=== PATIENT | male | born 1945 | race Caucasian/White ===

== ENCOUNTER → 2018-02-23 15:23 | Outpatient (CLI) | payer MEDICARE, OTHER, SELFPAY ==
--- NOTE | 2018-02-23 15:26 | DI.MRI.S_ITS ---
PROCEDURE: MR LUMBAR SPINE WO CON INDICATIONS: Lumbar stenosis TECHNIQUE: Noncontrast sagittal T1 spin echo and T2 fast echo, sagittal STIR, axial T1 and T2 fast spin echo through the lumbar spine. In this patient, coronal T2-weighted images were also performed. COMPARISON: None. FINDINGS: Image quality: Excellent. Alignment and Curvature: Mild dextroconvex scoliotic curvature is seen. Minimal retrolisthesis is seen at the L2-L3 level. Bone Marrow: Marrow is of normal overall signal. No acute vertebral body compression fractures. Spinal Cord: Conus medullaris terminates at the L1 level. Visualized cord demonstrates normal signal and size. Paraspinous Soft Tissues: No paravertebral masses. T12-L1: No significant abnormality is seen. L1-L2: Moderate loss of disc height is seen. Loss of disc signal is seen. Moderate disc bulge is seen, which is eccentric to the left. Mild to moderate bilateral neural foraminal narrowing is seen. No significant central canal narrowing is seen. L2-L3: Moderate loss of disc height is seen. Loss of disc signal is seen. Moderate disc bulge is seen, which is eccentric to the left. Reactive marrow endplate changes are seen, which are hyperintense on T1-weighted and T2-weighted imaging and most consistent with fatty metaplasia (Modic type II changes). There is mild right-sided and moderate left-sided neural foraminal narrowing seen. Mild to moderate central canal narrowing is seen. L3-L4: Mild loss of disc height is seen. Loss of disc signal is seen. Mild to moderate disc bulge is seen. Mild facet joint hypertrophy is seen. Yizo-wl-kngwbxen bilateral neural foraminal narrowing is seen. No significant central canal narrowing is seen. L4-L5: At least moderate loss of disc height is seen. Loss of disc signal is seen. Moderate disc bulge is seen, which is eccentric to the right. Mild facet joint hypertrophy is seen. There is moderate right-sided and mild to moderate left-sided neural foraminal narrowing seen. Mild central canal narrowing is seen. L5-S1: Moderate loss of disc height is seen. Loss of disc signal is seen. Moderate disc bulge is seen, which is eccentric right. There is moderate to severe right-sided and moderate left-sided neural foraminal narrowing seen. There is a degree of impingement seen upon the exiting nerve roots. Mild central canal narrowing is seen. IMPRESSION: Dextroconvex scoliosis and multiple levels of lumbar spine degenerative changes are seen, which are overall most prominent at the L5-S1 level. Dictated by: Sami Busby M.D. on 02/23/2018 at 15:52 Approved by: Sami Busby M.D. on 02/23/2018 at 15:57
== END ==
PROVIDERS: Family Provider Internal Medicine; PCP Internal Medicine; Visit Provider Physical Medicine & Rehabilitation
DX: M47.27 Other spondylosis with radiculopathy, lumbosacral region (principal); M51.17 Intervertebral disc disorders with radiculopathy, lumbosacral region; M51.36 Other intervertebral disc degeneration, lumbar region; M41.86 Other forms of scoliosis, lumbar region
CPT/HCPCS: 72148

== ENCOUNTER 2018-03-28 13:34 | Outpatient (CLI) | payer MEDICARE, OTHER, SELFPAY ==
--- NOTE | 2018-03-28 13:36 | DI.RAD.S_ITS ---
PROCEDURE: PAIN L INTERLAMINAR/CAUDAL INJ INDICATIONS: 15885 L2/3 Translaminar Epidural Steroid Injection FINDINGS: Fluoroscopic spot filming was performed to verify placement of spinal needles at the L2-L3 level(s), as labeled on the films. Appropriate location(s) of the needle tip(s) was confirmed by injection of iodinated contrast. IMPRESSION: Fluoroscopy support for pain management. Dictated by: Elizabeth Garber M.D. on 03/28/2018 at 16:29 Approved by: Elizabeth Garber M.D. on 03/28/2018 at 16:29
[2018-03-28 14:05] VITALS: BP 145/94; PULSE 76; RESP 16; TEMP 36.7; O2SAT 96
[2018-03-28 14:33] VITALS: BP 176/99; PULSE 82; RESP 18; O2SAT 95
[2018-03-28 14:41] VITALS: BP 181/114; PULSE 82; RESP 18; O2SAT 95
[2018-03-28] MEDS: IOPAMIDOL 15 ML VIAL 3 ML INJ (14:42)
[2018-03-28] MEDS: BUPIVACAINE 0.25% (PF) VIAL 2 ML INJ (14:42)
[2018-03-28] MEDS: methylPREDNISolone acetate 80 MG/ML VIAL INJ (14:43)
[2018-03-28] MEDS: DEXAMETHASONE 10 MG/ML VIAL 20 MG INJ (14:43)
--- NOTE | 2018-03-28 14:54 | P.PCN_ITS ---
Procedures Date/Time Date of procedure: 03/28/18 Time of procedure: 14:52 General Procedure description: POST OP DIAGNOSIS 1. HNP WITH RADICULAR FEATURES, 2. MULTILEVEL CENTRAL STENOSIS, PROCEDURES 1. FLUORSCOPICALLY GUIDED CONTRAST CONTROLLED INTERLAMINAR EPIDURAL STEROID INJECTION - L2/3 PHYSICIAN: Caesar Schneider, DO INDICATIONS Familia is referred by for treatment of Bilateral Foraminal Stenosis L> R LE symptoms. FINDINGS Multilevel Central Spinal Stenosis with Nerve Root Compression DESCRIPTION OF PROCEDURE Fluoroscopically guided, contrast-controlled L2/3 translaminar epidural steroid injection. Following denial of allergy and review of potential side effects and complications, including, but not necessarily limited to, infection, allergic reaction, local tissue breakdown, temporary as well as permanent nerve injury, paralysis, stroke and possible , the patient indicated that the patient understood and agreed to proceed. An informed consent document was signed by the patient, witnessed by a nurse, and placed in the patient's chart. Additionally, other treatment options including modalities, medications, and physical therapy were reviewed with the patient. After review of previous anaesthesic history and IV conscious sedation the patient was deemed safe to proceed with todays procedure with IV conscious sedation as ASA class II designation. Safety time-out was performed to confirm patient ID, procedure to be performed and site of procedure. IV sedation was deemed not necessary and thus not administered by the RN after DO order, the patient remained responsive to all verbal commands. In the prone position, following sterile prep and drape of the lumbar region, the L2/3 translaminar space was identified fluoroscopically. The skin was anesthetized via a 25-gauge, 1.5-inch needle with 1% lidocaine solution. At this point, a 22-gauge short bevel spinal needle was atraumatically introduced and advanced under fluoroscopic guidance into the region of the L2/3 translaminar space. Depth was confirmed on lateral view. Radiological data, including multiple fluoroscopic views of the lumbar spine, reveal a spinal needle at the L2/3 translaminar space. Lateral views then show placement of the needle in the epidural space. Subsequent views show contrast material flowing superiorly and inferiorly in the epidural space. No vascular or intrathecal uptake is observed. At this point, using loss of resistance technique with saline and air, the epidural space was entered. This was confirmed following negative aspiration with injection of approximately 1.5 cc of Isovue 200, showing excellent epidural flow without vascular or intrathecal uptake. At this point, 1 cc of 1 % lidocaine solution combined with 3 cc or 20 mg of dexamethasone and 80mg Depo medrol was injected without incident. The patient tolerated the procedure well without signs or symptoms of complications prior to transfer to the recovery area continued monitoring without incident. The patient was then transferred to the recovery area where they were observed for an appropriate period of time after the injection. The patient reported a VAS score of 6 prior to the procedure and a post-procedure VAS of 0. Total Fluoroscopy Time: 11.8 seconds Total Conscious Sedation Time: 24min POST OP INSTRUCTIONS The patient was provided a Pain Log to continue to record their response to the target-specific procedure prior to follow-up visit with their referring physician. Additionally, specific post-injection care instructions and a contact number to our office were provided if concerns arise regarding possible complications associated with the procedure are suspected. Caesar Schneider DO Complications: none
[2018-03-28 15:01] VITALS: BP 163/89; PULSE 78; RESP 16; O2SAT 97
== END 2018-03-28 15:49 | disposition home or self-care (01) ==
PROVIDERS: PCP Internal Medicine; Visit Provider Physical Medicine & Rehabilitation
DX: M51.16 Intervertebral disc disorders with radiculopathy, lumbar region (principal); M48.061 Spinal stenosis, lumbar region without neurogenic claudication
CPT/HCPCS: 62323; J1040; J1100; J2250

== ENCOUNTER 2018-04-05 11:50 | Day surgery (SDC) | payer MEDICARE, OTHER, SELFPAY ==
--- NOTE | 2018-04-05 | PATH_ITS ---
[facility] Accession Number: [id number] . 01 Material submitted: . PART A: ASCENDING COLON POLYP #1 PART B: TRANSVERSE COLON POLYP PART C: DESCENDING COLON POLYP PART D: SIGMOID POLYPS PART E: RECTAL POLYPS . 02 Diagnosis: A. Ascending Colon, Polyp #1, Biopsy: Tubular adenoma. . B. Transverse Colon, Polyp, Biopsy: Sessile serrated adenoma. . C. Descending Colon, Polyp, Biopsy: Tubular adenoma in two of three fragments. . D. Sigmoid Colon, Polyps, Biopsies: Tubular adenoma. . E. Rectum, Polyps, Biopsies: Hyperplastic polyp. MR/04/06/2018 . 02 Electronically signed: . Dinah Tan MD, Pathologist NPI- [id number] . 01 Gross description: . Received five formalin-filled containers each labeled with the patient's name. . A. In a container labeled ascending colon polyp, the specimen consists of two 0.1 to 0.2 cm portions of tissue. Entirely submitted in cassette A. B. In a container labeled transverse colon polyp, the specimen consists of two 0.3 to 0.5 cm portions of tissue. Entirely submitted in cassette B. C. In a container labeled descending colon polyp are three fragments of tissue, which range in size from 0.2 to 0.4 cm. Entirely submitted in cassette C. D. In a container labeled sigmoid polyp are two 0.2 to 0.5 cm portions of tissue. Entirely submitted in cassette D. E. In a container labeled rectal polyps, the specimen consists of a 0.3 cm portion of tissue. Entirely submitted in cassette E. ([facility]:[id number]) /[facility] . 02 Pathologist provided ICD-10: D12.2, D12.3, D12.4, D12.5 . 02 CPT . 703059, 837281, 834407, 604797, 467774 Specimen Comment: A duplicate report has been generated due to demographic updates. Performed at: 01 [facility] [address] [id number] MD Hipolito Salazar MD Phone: [phone] Performed at: 02 [facility] [address] [place] [id number] MD Dilan Huynh MD Phone: [phone]
--- NOTE | 2018-04-05 11:43 | PM.HP.1 ---
History of Present Illness Date Patient Seen: 04/05/18 Chief complaint: [id number] SCREENING COLONOSCOPY Narrative: 72-year-old male with a history of prostate cancer, hyperlipidemia who is here for colon polyp surveillance. His last colonoscopy was performed September 24, 2014 which revealed serrated in tubular adenomas in the recall was recommended in 3 years. He currently has no active GI symptoms. Patient History Family & Social History Tobacco & Substance use: Smoking Status Current some day smoker Meds Home Medications Medication Instructions Recorded Confirmed Type B-complex with vitamin C capsule 1 cap PO DAILY 02/13/18 03/23/18 History ascorbic acid (vitamin C) 500 mg mg PO cap 02/13/18 03/23/18 History capsule aspirin 81 mg tablet,delayed 81 mg PO DAILY 02/13/18 03/23/18 History release cholecalciferol (vitamin D3) 2,000 2,000 unit PO DAILY 02/13/18 03/23/18 History unit/drop oral drops naproxen sodium PO 02/13/18 03/23/18 History vitamin B complex tablet 1 tab PO DAILY 02/13/18 03/23/18 History Allergies Allergy/AdvReac Type Severity Reaction Status Date / Time amoxicillin Allergy Mild Verified 03/23/18 10:54 celecoxib [From Celebrex] Allergy Mild hives Verified 03/23/18 10:54 Review of Systems Review of Systems All systems reviewed & are unremarkable except as noted in HPI and below Exam Narrative Exam Narrative: General: Patient is obese, not in apparent distress Cardiovascular: Regular rate and rhythm, no murmurs, rubs, or gallops; no evidence of edema; no palpable abdominal aortic aneurysm Gastrointestinal: Normoactive bowel sounds, soft, nontender, nondistended, no rebound tenderness, no hepatosplenomegaly, no evidence of hernia Assessment & Plan Plan: Assessment/Plan Narrative: 72-year-old male with a history of adenomatous polyps on prior colonoscopy September 2014 who is here for colon polyp surveillance. He has no active GI issues of present Regarding the procedure(s), the risks and potential complications, benefits, and alternatives (including not doing the procedure) were discussed with the patient. The risks include but are not limited to bleeding, infection, perforation which may require surgical intervention, missed lesions, and adverse reactions to sedative medicines. After a question and answer period, the patient agreed to proceed with the procedure(s) and gives informed consent.
[2018-04-05] MEDS: SODIUM CHLORIDE 0.9% 1,000 ML 70 ML IV (12:14)
[2018-04-05 12:15] VITALS: BP 161/99; PULSE 78; RESP 15; TEMP 36; O2SAT 95; BMI 27.8
--- NOTE | 2018-04-05 12:41 | PM.HP.1 ---
History of Present Illness Chief complaint: [id number] SCREENING COLONOSCOPY Narrative: 72-year-old male with a history of prostate cancer, hyperlipidemia who is here for colon polyp surveillance. His last colonoscopy was performed September 24, 2014 which revealed serrated in tubular adenomas in the recall was recommended in 3 years. He currently has no active GI symptoms. Patient History Family & Social History Social History: household members spouse Tobacco & Substance use: Smoking Status Current some day smoker Meds Home Medications Medication Instructions Recorded Confirmed Type B-complex with vitamin C capsule 1 cap PO DAILY 02/13/18 03/23/18 History ascorbic acid (vitamin C) 500 mg mg PO cap 02/13/18 03/23/18 History capsule aspirin 81 mg tablet,delayed 81 mg PO DAILY 02/13/18 03/23/18 History release cholecalciferol (vitamin D3) 2,000 2,000 unit PO DAILY 02/13/18 03/23/18 History unit/drop oral drops naproxen sodium PO 02/13/18 03/23/18 History vitamin B complex tablet 1 tab PO DAILY 02/13/18 03/23/18 History Allergies Allergy/AdvReac Type Severity Reaction Status Date / Time amoxicillin Allergy Mild Verified 03/23/18 10:54 celecoxib [From Celebrex] Allergy Mild hives Verified 03/23/18 10:54 Review of Systems Review of Systems All systems reviewed & are unremarkable except as noted in HPI and below Exam Vital Signs (past 8 hours): - 04/05/18 12:15 Temperature 96.8 F L Pulse Rate 78 Respiratory Rate 15 Blood Pressure 161/99 H Pulse Oximetry 95 Oxygen Delivery Method Room Air Narrative Exam Narrative: General: Patient is overweight, not in apparent distress Cardiovascular: Regular rate and rhythm, no murmurs, rubs, or gallops; no evidence of edema; no palpable abdominal aortic aneurysm Gastrointestinal: Normoactive bowel sounds, soft, nontender, nondistended, no rebound tenderness, no hepatosplenomegaly, no evidence of hernia Assessment & Plan Plan: Assessment/Plan Narrative: 72-year-old male who is here for colon polyp surveillance. Last colonoscopy performed September 2014 with tubular adenoma and sessile serrated adenoma removed. Patient has no current active GI issues. Regarding the procedure(s), the risks and potential complications, benefits, and alternatives (including not doing the procedure) were discussed with the patient. The risks include but are not limited to bleeding, infection, perforation which may require surgical intervention, missed lesions, and adverse reactions to sedative medicines. After a question and answer period, the patient agreed to proceed with the procedure(s) and gives informed consent.
--- NOTE | 2018-04-05 12:47 | PM.OP.ENDO ---
Operative Date/Time/Diagnoses Date of procedure: 04/05/18 Procedure Notes Procedure in detail: Surgeon: Angelo Jackson MD Procedure: Colonoscopy with polypectomy Preoperative diagnosis: Colon polyp surveillance; last colonoscopy September 2014 with removal of tubular adenoma and serrated adenoma Postoperative diagnosis: 7 colon polyps status post polypectomy, sigmoid diverticulosis, grade 2 internal hemorrhoids Medications: Conscious sedation using 4 mg IV of Midazolam and 100 mcg IV of Fentanyl Preanesthesia Assessment An H and P was performed/updated and the Px?s ASA class is 2. The procedure was discussed in detail with the patient. The potential risks and complications including infection, bleeding, missed lesions, perforation, need for surgery in case of perforation, prolonged hospital stay, and were explained. A brief question and answer period was allotted and once all questions were answered, informed consent was obtained. The patient was brought back to the procedure room and placed on standard monitoring. The patient?s vital signs were monitored continuously throughout the entire procedure. Prior to starting, a timeout was performed to confirm the patient?s identity, allergies, medications, and procedure. Procedure in detail The patient was placed in left lateral decubitus position and once adequate sedation was obtained a MARC was performed. The digital rectal examination did not reveal any palpable lesions. The tip of the colonoscope was placed in the anal canal and advanced all the way to the cecum with some difficulty due to significant looping in the sigmoid colon. This was rectified by putting the patient in supine position and administering external pressure. Scope reduction was also performed. The cecum was identified by the appendiceal orifice and the ileocecal valve. In the ascending colon, there was note of 2 sessile polyps measuring 2 mm. These were removed by means of cold Jumbo forceps. Excision and retrieval were complete with minimal bleeding. In the transverse colon, there was a 10 mm sessile polyp which was removed by means of cold snare. A 2nd 2 mm sessile polyp was removed by means of cold Jumbo forceps. Excision and retrieval of both polyps was complete with minimal bleeding. In the descending colon, there was a 3 mm sessile polyp which was removed by means of cold Jumbo forceps. Excision and retrieval was complete with minimal bleeding. In the sigmoid colon, there was note of a 6 mm pedunculated polyp which was removed by means of hot snare. Excision and retrieval was complete with no bleeding. There was also note of multiple medium and large-sized diverticula throughout the sigmoid colon. In the rectum, there was note of a 2 mm sessile polyp which was removed by means of cold Jumbo forceps. Excision and retrieval was complete with minimal bleeding. Retroflexion was performed which revealed nonbleeding grade 2 internal hemorrhoids. The patient tolerated the procedure well and will be brought back to the recovery area to be discharged once criteria are met. The prep was judged to be good and adequate to identify polyps less than 5 mm. The withdrawal time was 18 min. The total physician intraservice time was 30 min. Complications There were no complications and estimated blood loss was minimal. Recommendations: Resume previous diet Continue outPx medications Follow up pathology results Repeat colonoscopy in 3 years for surveillance An emergency contact number was given to the patient for any complications related to the procedure
[2018-04-05] MEDS: MIDAZOLAM 5 MG/5 ML VIAL IV (12:57)
[2018-04-05] MEDS: fentaNYL 250 MCG/5 ML INJ IV (12:58)
[2018-04-05 13:29] VITALS: BP 141/91; PULSE 78; RESP 12; TEMP 37; O2SAT 95
--- NOTE | 2018-04-05 13:29 | PM.DS.1 ---
History of Present Illness Chief complaint: [id number] SCREENING COLONOSCOPY Discharge Providers Primary care physician: Esvin Mckay MD Discharge provider: Angelo Jackson MD Discharge Date: 04/05/18 Exam Vital Signs (past 8 hours): - 04/05/18 12:15 Temperature 96.8 F L Pulse Rate 78 Respiratory Rate 15 Blood Pressure 161/99 H Pulse Oximetry 95 Oxygen Delivery Method Room Air Narrative Exam Narrative: General: Patient is overweight, not in apparent distress Cardiovascular: Regular rate and rhythm, no murmurs, rubs, or gallops; no evidence of edema; no palpable abdominal aortic aneurysm Gastrointestinal: Normoactive bowel sounds, soft, nontender, nondistended, no rebound tenderness, no hepatosplenomegaly, no evidence of hernia Discharge Plan Discharge Plan Patient Disposition: Home Discharge Med Rec/Prescriptions Prescriptions: Continue aspirin [Adult Aspirin Regimen] 81 mg tablet,delayed release (DR/EC) 81 mg PO DAILY RF: 0 vitamin B complex [B Complex 1] tablet 1 tab PO DAILY RF: 0 B-complex with vitamin C capsule 1 cap PO DAILY RF: 0 cholecalciferol (vitamin D3) 2,000 unit/drop drops 2,000 unit PO DAILY RF: 0 ascorbic acid (vitamin C) 500 mg capsule PO RF: 0 naproxen sodium PO RF: 0 Discharge Orders: Discharge (Order); Ordered 04/05/18 Ordered By: Angelo Jackson Provider Discharge Instructions Diet: Diet as Tolerated Visit Report/Discharge Packet Stand Alone Forms: Surgery Discharge Discharge Data Primary Care Provider: Esvin Mckay V Attending Provider: Angelo Jackson
== END 2018-04-05 13:50 | disposition home or self-care (01) ==
PROVIDERS: PCP Internal Medicine; Visit Provider Internal Medicine Gastroenterology
PROC: 0DJD8ZZ Inspection of Lower Intestinal Tract, Via Natural or Artificial Opening Endoscopic (ICD-10-PCS; CPT 45378; principal; 2018-04-05 13:00)
DX: Z86.010 Personal history of colon polyps (principal); K57.30 Diverticulosis of large intestine without perforation or abscess without bleeding; K64.1 Second degree hemorrhoids; F17.210 Nicotine dependence, cigarettes, uncomplicated; D12.2 Benign neoplasm of ascending colon; D12.3 Benign neoplasm of transverse colon; D12.4 Benign neoplasm of descending colon; D12.5 Benign neoplasm of sigmoid colon; D12.8 Benign neoplasm of rectum
CPT/HCPCS: 45385; 45380; 88305; J2250; J3010

== ENCOUNTER → 2020-09-09 19:07 | Outpatient (ROUT) | payer MEDICARE, OTHER, SELFPAY ==
[2020-09-09 19:37] LABS: Aspartate Aminotransferase 34 IU/L (17-59); Blood Urea Nitrogen 19 mg/dL (9-20); Calcium 9.6 mg/dL (8.4-10.2); Carbon Dioxide 31 mmol/L (22-32); Chloride 100 mmol/L (98-107); Cholesterol 217 mg/dL (140-199); Estimated Glomerular Filt Rate > 60.0 mL/min (>60); Glucose 97 mg/dL (80-110); HDL Cholesterol 67 mg/dL (40-60); HEMOLYSIS < 15 (0-50); LDL Cholesterol Calculated 135 mg/dL (<100); Potassium 4.4 mmol/L (3.4-5.1); Sodium 137 mmol/L (137-145); Triglycerides 76 mg/dL (35-150)
[2020-09-09 20:09] LABS: Prostate Specific Antigen 7.08 ng/mL (0.10-4.00)
[2020-09-09 20:10] LABS: Testosterone 19.9 ng/dL (71.8-623)
== END ==
PROVIDERS: PCP Internal Medicine; Visit Provider Internal Medicine
DX: I10 Essential (primary) hypertension (principal); E78.2 Mixed hyperlipidemia; C61 Malignant neoplasm of prostate
CPT/HCPCS: 80048; 80061; 84153; 84403; 84450

== ENCOUNTER 2021-01-30 16:17 | Emergency (ER) | payer MEDICARE, OTHER, SELFPAY ==
[2021-01-30 16:24] VITALS: BP 193/97; PULSE 74; RESP 17; TEMP 36.8; O2SAT 99; BMI 28.8
[2021-01-30] MEDS: TET,DIPH,PERTUSS(ACELL),VAC/PF 0.5 ML SYRINGE IM (18:35)
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
[2021-01-30 19:35] VITALS: BP 195/107; PULSE 61; RESP 16; TEMP 36.3; O2SAT 98
== END 2021-01-30 19:36 | disposition home or self-care (01) ==
PROVIDERS: Emergency Provider Emergency Medicine; PCP Internal Medicine
DX: S01.01XA Laceration without foreign body of scalp, initial encounter (principal); W22.8XXA Striking against or struck by other objects, initial encounter; Z23 Encounter for immunization
CPT/HCPCS: 12001; 90471; 99283; 90715

== ENCOUNTER → 2021-09-21 09:58 | Outpatient (CLI) | payer MEDICARE, OTHER, SELFPAY ==
[2021-09-21 14:14] LABS: COVID19 -Nasal RAPID Negative (Negative)
== END ==
PROVIDERS: PCP Internal Medicine; Visit Provider Nurse Practitioner Family
DX: Z20.822 Contact with and (suspected) exposure to COVID-19 (principal)
CPT/HCPCS: 87635; C9803

== ENCOUNTER 2021-09-23 07:27 | Day surgery (SDC) | payer MEDICARE, OTHER, SELFPAY ==
--- NOTE | 2021-09-23 | PATH_ITS ---
[facility] Accession Number: [id number] . 01 Material submitted: . PART A: colon - TRANSVERSE COLON POLYP PART B: colon - SIGMOID COLON POLYP . 02 Diagnosis: A. Transverse Colon Polyp: Superficial portion of colorectal mucosa x 1 with a prominent benign lymphoid aggregate. . B. Sigmoid Colon Polyp: Portions of tubular adenoma x2. MRV 09/28/2021 1337 Local . 02 Electronically signed: . Mellisa Roth MD, Pathologist NPI- [id number] . 01 Gross description: . Part A: TRANSVERSE COLON POLYP: Received in formalin is 1 fragment(s) of fernández, soft tissue measuring 0.3 x 0.2 x 0.2 cm submitted entirely in 1 cassette(s) Part B: SIGMOID COLON POLYP: Received in formalin are 2 fragment(s) of fernández, soft tissue measuring 0.3 x 0.2 x 0.2 cm to 0.4 x 0.4 x 0.2 cm submitted entirely in 1 cassette(s) /PHILLIP 09/24/[id number] Local . 02 Pathologist provided ICD-10: Z86.010, K63.5 . 02 CPT . 091971, 163209 Specimen Comment: A courtesy copy of this report has been sent to [phone] Performed at: 01 [facility] [address], [place], [place] [id number] MD Hipolito Salazar MD Phone: [phone] Performed at: 02 [facility] [address] [place], [place] [id number] MD Dinah Tan MD Phone: [phone]
[2021-09-23 07:56] VITALS: BP 175/94; PULSE 82; RESP 16; TEMP 36.6; O2SAT 95; BMI 30.8
[2021-09-23] MEDS: SODIUM CHLORIDE 0.9% 1,000 ML 84 ML IV (08:08)
--- NOTE | 2021-09-23 09:24 | PM.HP.1 ---
History of Present Illness History of Present Illness Date Patient Seen: 09/23/21 Chief complaint: DX COLONOSCOPY Narrative: History of colon polyps. 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 Lumbosacral spondylosis with radiculopathy Pacemaker Surgical History Status post ORIF of fracture of ankle Family & Social History Social History: household members spouse Tobacco & Substance use: Tobacco type cigars Smoking Status Current some day smoker alcohol intake current alcohol intake frequency 0-2 drinks per day Substance Use Type does not use Meds Home Medications and Allergies Home Medications Medication Instructions Recorded Confirmed Type B-complex with vitamin C 1 cap PO DAILY 02/13/18 09/23/21 History ascorbic acid (vitamin C) 500 mg 500 mg PO DAILY cap 02/13/18 09/23/21 History capsule cholecalciferol (vitamin D3) 2,000 unit PO DAILY 02/13/18 09/23/21 History vitamin B complex (B Complex 1) 1 tab PO DAILY 02/13/18 09/23/21 History Allergies Allergy/AdvReac Type Severity Reaction Status Date / Time amoxicillin Allergy Mild Verified 01/30/21 16:25 celecoxib [From Celebrex] Allergy Mild hives Verified 01/30/21 16:25 Exam Vital Signs (past 8 hours): - 09/23/21 07:56 Temperature 98 F Pulse Rate 82 Respiratory Rate 16 Blood Pressure 175/94 H Pulse Oximetry 95 Oxygen Delivery Method Room Air Narrative Exam Narrative: Oropharynx free of lesions Chest clear to auscultation percussion Cardiac exam reveals no S3 or murmur Assessment & Plan Assessment & Plan narrative: History of adenomatous colon polyps need for follow-up colonoscopy. Do not do procedure now may interfere with the best outcomes. Risks benefits and alternatives been explained. Time Spent With Patient Critical Care time: I spent a total of [] minutes of critical care time on this patient's care today; this time is exclusive of procedural time.
--- NOTE | 2021-09-23 09:25 | PM.OP.COLON ---
Operative Date/Time/Diagnoses Date of procedure: 09/23/21 Pre-op diagnosis: See indication and findings Procedure & Clinicians Study performed: Colonoscopy Indications: History of adenomatous colon polyps Procedure Notes Procedure in detail: After informed consent was obtained the patient was placed in left lateral decubitus position. The video colonoscope was introduced the rectum slowly advanced cecum. On slow withdrawal mucosa was carefully examined. The scope was removed. The patient tolerated procedure well. Blood loss none Complications none Sedation mac Findings 1. 2 mm polyp in the transverse colon Jumbo biopsy removed completely 2. 6 mm polyp in the sigmoid colon Jumbo biopsy removed completely. 3. Extensive sigmoid diverticulosis 4. Otherwise negative colonoscopy to cecum Will follow up on the pathology from these polyps but this may be Mr. 4 T is last colonoscopy.
[2021-09-23 10:06] VITALS: BP 98/72; PULSE 80; RESP 17; TEMP 36.1; O2SAT 94
[2021-09-23 10:12] VITALS: BP 139/84; PULSE 74; RESP 16; O2SAT 96
[2021-09-23 10:17] VITALS: BP 155/87; PULSE 61; RESP 15; TEMP 36.7; O2SAT 97
[2021-09-23 10:35] VITALS: BP 164/87; PULSE 77; RESP 16; TEMP 36.7; O2SAT 99
== END 2021-09-23 10:50 | disposition home or self-care (01) ==
PROVIDERS: PCP Internal Medicine; Referring Provider Internal Medicine Gastroenterology; Visit Provider Internal Medicine Gastroenterology
PROC: 0DJD8ZZ Inspection of Lower Intestinal Tract, Via Natural or Artificial Opening Endoscopic (ICD-10-PCS; CPT 45378; principal; 2021-09-23 09:00)
DX: Z12.11 Encounter for screening for malignant neoplasm of colon (principal); Z86.010 Personal history of colon polyps; I10 Essential (primary) hypertension; I44.2 Atrioventricular block, complete; Z95.0 Presence of cardiac pacemaker; K57.30 Diverticulosis of large intestine without perforation or abscess without bleeding; D12.5 Benign neoplasm of sigmoid colon
CPT/HCPCS: 45380; J2704

== ENCOUNTER → 2024-08-22 09:13 | Outpatient (CLI) | payer MEDICARE, OTHER, SELFPAY ==
[2024-08-22 10:36] LABS: Alanine Aminotransferase 22 IU/L (<50); Albumin 4.5 g/dL (3.5-5.0); Albumin Globulin Ratio 1.9 (1.0-2.8); Alkaline Phosphatase 50 U/L (38-126); Aspartate Aminotransferase 24 IU/L (17-59); BUN Creatinine Ratio 16.7 (6-22); Bilirubin Total 0.9 mg/dL (0.2-1.3); Blood Urea Nitrogen 15 mg/dL (9-20); Calcium 9.6 mg/dL (8.4-10.2); Carbon Dioxide 30 mmol/L (22-32); Chloride 101 mmol/L (98-107); Cholesterol 190 mg/dL (140-199); Estimated Glomerular Filt Rate > 60 mL/min (>60); Globulin 2.4 g/dL (1.7-4.1); Glucose 102 mg/dL (80-110); HDL Cholesterol 42 mg/dL (40-60); HEMOLYSIS < 15 (0-50); LDL Cholesterol Calculated 128 mg/dL (<100); Potassium 4.9 mmol/L (3.4-5.1); Sodium 139 mmol/L (137-145); Total Protein 6.9 g/dL (6.3-8.2); Triglycerides 98 mg/dL (35-150)
[2024-08-22 10:57] LABS: Creatinine Urine Random 105.77 mg/dL
[2024-08-22 11:02] LABS: Microalbumin Urine Random 0.7 mg/dL (0-1.6)
[2024-08-22 11:04] LABS: TSH w/ Reflex to FT4 1.99 uIU/mL (0.47-4.68)
[2024-08-22 11:05] LABS: Prostate Specific Antigen 16.2 ng/mL (0.10-4.00)
[2024-08-22 13:34] LABS: Hematocrit 46.4 % (41-53); Hemoglobin 16.2 g/dL (13.5-17.5); Mean Corpuscular HGB Conc 34.9 % (30-36); Mean Corpuscular Hemoglobin 33.2 PG (26-34); Mean Corpuscular Volume 95.1 fL (80-100); Platelet Count 213 X10^3/uL (150-400); Red Blood Cell Count 4.88 X10^6/uL (4.5-5.9); Red Cell Distribution Width 13.4 % (11.6-14.8); White Blood Cell Count 5.8 X10^3/uL (4.5-11.0)
== END ==
PROVIDERS: PCP Internal Medicine; Referring Provider Internal Medicine; Visit Provider Internal Medicine
DX: I10 Essential (primary) hypertension (principal); C61 Malignant neoplasm of prostate; E78.2 Mixed hyperlipidemia
CPT/HCPCS: 36415; 80053; 80061; 82043; 82570; 84153; 84443; 85027

== ENCOUNTER → 2024-10-25 14:14 | Outpatient (CLI) | payer MEDICARE, OTHER, SELFPAY ==
[2024-10-25 15:24] LABS: Add Manual Diff / Slide Review NO; Basophils Absolute Auto 0 /uL (0-100); Basophils Percent Auto 0.3 % (0-2); Eosinophils Absolute Auto 100 /uL (0-450); Eosinophils Percent Auto 1.9 % (2-4); Hematocrit 43.3 % (41-53); Hemoglobin 15.1 g/dL (13.5-17.5); Lymphocytes Absolute Auto 1500 /uL (1100-4500); Lymphocytes Percent Auto 31.1 % (25-40); Mean Corpuscular HGB Conc 34.9 % (30-36); Mean Corpuscular Hemoglobin 33.7 PG (26-34); Mean Corpuscular Volume 96.5 fL (80-100); Monocytes Absolute Auto 700 /uL (0-900); Monocytes Percent Auto 15.1 % (3-14); Neutrophils Absolute Auto 2600 /uL (1500-7000); Neutrophils Percent Auto 51.6 % (50-75); Platelet Count 185 X10^3/uL (150-400); Red Blood Cell Count 4.49 X10^6/uL (4.5-5.9); Red Cell Distribution Width 14.4 % (11.6-14.8)
== END ==
PROVIDERS: PCP Internal Medicine; Referring Provider Internal Medicine; Visit Provider Internal Medicine
DX: E11.9 Type 2 diabetes mellitus without complications (principal); K62.5 Hemorrhage of anus and rectum
CPT/HCPCS: 36415; 85025